=== PATIENT | female | born 1935 | race Caucasian/White ===

== ENCOUNTER 2023-05-21 14:29 | Observation (INO) | payer OTHER, MEDICARE ==
[2023-05-21 16:11] LABS: HEMATOCRIT 37.5 % (32.4-45.2); HEMOGLOBIN 12.5 G/dL (10.7-15.3); MCH 31.2 pg (25.7-33.7); MCHC 33.2 g/dl (32.0-36.0); MEAN CELL VOLUME 93.7 fl (80-96); MEAN PLT VOLUME 7.9 fl (7.5-11.1); PLATELET COUNT 199.4 10^3/uL (134-434); WHITE BLOOD COUNT 8.9 10^3/uL (4.0-10.8)
[2023-05-21 17:14] LABS: POTASSIUM 4.2 mmol/L (3.5-5.1)
[2023-05-21 17:16] LABS: CALCIUM 8.4 mg/dL (8.5-10.1)
[2023-05-21 17:17] LABS: BLOOD UREA NITROGEN 19.8 mg/dL (7-18)
[2023-05-21 17:20] LABS: CREATININE 0.8 mg/dL (0.55-1.3)
[2023-05-21 17:22] LABS: BILIRUBIN,TOTAL 0.6 mg/dL (0.2-1)
[2023-05-21 18:16] LABS: PLATELET ESTIMATE ADEQUATE
[2023-05-21] MEDS ORDERED: ACETAMINOPHEN 1000 MG/100 ML BAG IVPB PRN (20:41)
[2023-05-21] MEDS ORDERED: SODIUM CHLORIDE 500 ML IV ONE (21:00)
[2023-05-21] MEDS ORDERED: traZODone HCL 100 MG TABLET (FP) PO SCH (22:00)
[2023-05-21 22:03] VITALS: BMI 22.6
[2023-05-21] MEDS: CARVEDILOL 12.5 MG TABLET (FP) PO SCH (22:34)
[2023-05-21] MEDS: ATORVASTATIN CA 10 MG TABLET (FP) PO SCH (22:34)
[2023-05-22 09:08] LABS: POTASSIUM 4.4 mmol/L (3.5-5.1)
[2023-05-22 09:09] LABS: CALCIUM 8.2 mg/dL (8.5-10.1)
[2023-05-22 09:10] LABS: BLOOD UREA NITROGEN 15.4 mg/dL (7-18); MAGNESIUM 2.2 mg/dL (1.8-2.4)
[2023-05-22 09:11] LABS: BASO % 0.6 % (0-2.0); EOS % 6.1 % (0-4.5); HEMOGLOBIN 12.3 GM/dL (10.7-15.3); LYMPH % 28.5 % (8-40); MCH 31.8 pg (25.7-33.7); MCHC 35.1 g/dl (32.0-36.0); MEAN CELL VOLUME 90.6 fl (80-96); MEAN PLT VOLUME 7.9 fl (7.5-11.1); MONO % 9.1 % (3.8-10.2); NEUT % 55.7 % (42.8-82.8); PLATELET COUNT 202 10^3/uL (134-434); RBC 3.87 M/mm3 (3.60-5.2); RDW 13.5 % (11.6-15.6); WHITE BLOOD COUNT 5.4 K/mm3 (4.0-10.0)
[2023-05-22 09:13] LABS: CREATININE 0.7 mg/dL (0.55-1.3)
[2023-05-22] MEDS: LOSARTAN POTASSIUM 50 MG TABLET PO SCH ×2 (09:50→10:41)
[2023-05-22] MEDS: CALCIUM CARBONATE 650 MG TABLET PO SCH (09:50)
[2023-05-22] MEDS: ASCORBIC ACID 500 MG TABLET (FP) PO SCH (09:50)
[2023-05-22] MEDS: CARVEDILOL 12.5 MG TABLET (FP) PO SCH ×2 (09:50→10:41)
[2023-05-22] MEDS: CYANOCOBALAMIN (VITAMIN B-12) 100 MCG TABLET PO SCH (09:50)
[2023-05-22] MEDS: MULTIVITAMINS (DAILY MVI) TABLET (FP) PO SCH (09:50)
[2023-05-22] MEDS: ASPIRIN COATED 81 MG TABLET.EC PO SCH (09:50)
[2023-05-22] MEDS ORDERED: PATIENT'S OWN MEDICATION (NON-FORMULARY) (Multivitamin [Multivitamin] 1 EACH Tablet) PO SCH (10:00)
[2023-05-22] MEDS ORDERED: ASCORBIC ACID 1000 MG PO SCH (10:00)
[2023-05-22] MEDS ORDERED: PATIENT'S OWN MEDICATION (NON-FORMULARY) (Cranberry Fruit Extract [Cranberry] 250 MG Capsu PO SCH (10:00)
[2023-05-22] MEDS ORDERED: CALCIUM CARBONATE 600 MG PO SCH (10:00)
[2023-05-22] MEDS ORDERED: CARVEDILOL 12.5 MG TABLET (FP) PO SCH (10:26)
[2023-05-22] MEDS ORDERED: LOSARTAN POTASSIUM 50 MG TABLET PO SCH (10:30)
[2023-05-22] MEDS: LEVOTHYROXINE NA 50 MCG TABLET (FP) PO SCH (11:44)
[2023-05-22] MEDS: CARVEDILOL 6.25 MG TABLET (FP) PO SCH ×2 (11:44→21:41)
[2023-05-22] MEDS ORDERED: SODIUM CHLORIDE 1,000 ML IV SCH (12:15)
[2023-05-22] MEDS ORDERED: ENOXAPARIN NA (PORCINE) 30 MG/0.3 ML DISP.SYRIN SQ SCH (12:15)
[2023-05-22] MEDS ORDERED: LOSARTAN POTASSIUM 25 MG TABLET PO SCH (12:16)
[2023-05-22] MEDS ORDERED: ENOXAPARIN NA (PORCINE) 40 MG/0.4 ML DISP.SYRIN SQ SCH (12:44)
[2023-05-22] MEDS: ENOXAPARIN NA (PORCINE) 40 MG/0.4 ML DISP.SYRIN SQ SCH (17:17)
[2023-05-22] MEDS ORDERED: ACETAMINOPHEN 325 MG TABLET (FP) PO PRN (20:40)
[2023-05-22] MEDS: ATORVASTATIN CA 10 MG TABLET (FP) PO SCH (21:41)
[2023-05-22] MEDS: MELATONIN 1 MG TABLET PO SCH (21:43)
[2023-05-23] MEDS: LEVOTHYROXINE NA 50 MCG TABLET (FP) PO SCH (06:23)
[2023-05-23] MEDS: CARVEDILOL 6.25 MG TABLET (FP) PO SCH ×2 (10:05→21:33)
[2023-05-23] MEDS: CALCIUM CARBONATE 650 MG TABLET PO SCH (10:05)
[2023-05-23] MEDS: ASPIRIN COATED 81 MG TABLET.EC PO SCH (10:05)
[2023-05-23] MEDS: LOSARTAN POTASSIUM 25 MG TABLET PO SCH (10:05)
[2023-05-23] MEDS: CYANOCOBALAMIN (VITAMIN B-12) 100 MCG TABLET PO SCH (10:05)
[2023-05-23] MEDS: MULTIVITAMINS (DAILY MVI) TABLET (FP) PO SCH (10:05)
[2023-05-23] MEDS: ASCORBIC ACID 500 MG TABLET (FP) PO SCH (10:06)
[2023-05-23] MEDS: ENOXAPARIN NA (PORCINE) 40 MG/0.4 ML DISP.SYRIN SQ SCH (10:06)
[2023-05-23] MEDS: MELATONIN 1 MG TABLET PO SCH (21:33)
[2023-05-23] MEDS: ATORVASTATIN CA 10 MG TABLET (FP) PO SCH (21:33)
[2023-05-24] MEDS: LEVOTHYROXINE NA 50 MCG TABLET (FP) PO SCH (06:49)
[2023-05-24 06:57] VITALS: TEMP 97.7
[2023-05-24 08:55] LABS: HEMATOCRIT 39.3 % (32.4-45.2); HEMOGLOBIN 12.9 G/dL (10.7-15.3); MCHC 32.9 g/dl (32.0-36.0); MEAN CELL VOLUME 94.2 fl (80-96); MEAN PLT VOLUME 8.1 fl (7.5-11.1); RBC 4.17 10^6/uL (3.60-5.2); WHITE BLOOD COUNT 5.2 10^3/uL (4.0-10.8)
[2023-05-24 09:03] LABS: BILIRUBIN,TOTAL 0.5 mg/dl (0.2-1); BLOOD UREA NITROGEN 15.8 mg/dl (7-18); CALCIUM 9.5 mg/dl (8.5-10.1); CREATININE 0.7 mg/dl (0.6-1.3); POTASSIUM 4.7 mmol/L (3.5-5.1); SGOT/AST 17.188 U/L (15-37); SGPT/ALT 15.598 U/L (7-52); TOT PROT 6.7 g/dl (6.4-8.2)
[2023-05-24 09:35] VITALS: BP 136/60; PULSE 59; RESP 18
[2023-05-24] MEDS: LOSARTAN POTASSIUM 25 MG TABLET PO SCH (10:09)
[2023-05-24] MEDS: ENOXAPARIN NA (PORCINE) 40 MG/0.4 ML DISP.SYRIN SQ SCH (10:09)
[2023-05-24] MEDS: MULTIVITAMINS (DAILY MVI) TABLET (FP) PO SCH (10:09)
[2023-05-24] MEDS: CALCIUM CARBONATE 650 MG TABLET PO SCH (10:10)
[2023-05-24] MEDS: CYANOCOBALAMIN (VITAMIN B-12) 100 MCG TABLET PO SCH (10:10)
[2023-05-24] MEDS: CARVEDILOL 6.25 MG TABLET (FP) PO SCH (10:10)
[2023-05-24] MEDS: ASCORBIC ACID 500 MG TABLET (FP) PO SCH (10:10)
[2023-05-24] MEDS: ASPIRIN COATED 81 MG TABLET.EC PO SCH (10:10)
[2023-05-24 12:41] LABS: PLATELET ESTIMATE ADEQUATE
== END 2023-05-24 14:20 | disposition home or self-care (01) ==
LOC: FER 14:29 → UNDOADMOB 17:55 → INTOOBSV 17:55 → FM/S 17:55
PROVIDERS: ADMIT Internal Medicine
PROC: 3E023GC Introduction of Other Therapeutic Substance into Muscle, Percutaneous Approach (ICD-10-PCS; principal; 2023-05-21)
PROC: 3E0337Z Introduction of Electrolytic and Water Balance Substance into Peripheral Vein, Percutaneous Approach (ICD-10-PCS; 2023-05-21)
DX: S92.001A Unspecified fracture of right calcaneus, initial encounter for closed fracture (principal); I95.1 Orthostatic hypotension; E03.9 Hypothyroidism, unspecified; E87.1 Hypo-osmolality and hyponatremia; I10 Essential (primary) hypertension; W18.39XA Other fall on same level, initial encounter; Y93.89 Activity, other specified; Y92.009 Unspecified place in unspecified non-institutional (private) residence as the place of occurrence of the external cause; I25.10 Atherosclerotic heart disease of native coronary artery without angina pectoris; Z29.89 Encounter for other specified prophylactic measures; Z86.73 Personal history of transient ischemic attack (TIA), and cerebral infarction without residual deficits
CPT/HCPCS: 36415; 70450-TC; 71046-TC-FY; 73630-TC-RT-FY; 80048; 80053; 81003; 82607; 83735; 84100; 84436; 84439; 84443; 84484; 85025; 85027; 86140; 87086; 93005; 93306-TC; 93880-TC; 96360; 96372; 97116-GP; 97161-GP; 99285-25; G0378